=== PATIENT | female | born 1985 | race Caucasian/White ===

== ENCOUNTER 2017-06-18 07:21 | Emergency (ER) | payer OTHER ==
[~2017-06-18] VITALS: Ht 182.9 cm; Wt 105.0 kg
[~2017-06-18 07:21] MED LIST: MACR100C PO; METR-1 PO; PYRI200T4 PO
[2017-06-18 07:28] VITALS: BP 145/78; PULSE 91; RESP 16; TEMP 97.2; O2SAT 97
[2017-06-18 08:01] VITALS: BP 113/77; PULSE 65; RESP 20; O2SAT 99
[2017-06-18] MEDS ORDERED: ATROPINE/SCOPOLAM/HYOSCYAM/PB ELIXIR 10 ML CUP PO ONE (08:15)
[2017-06-18] MEDS ORDERED: ALUMINUM/MAGNESIUM/SIMETH 30 ML CUP PO ONE (08:15)
[2017-06-18] MEDS ORDERED: PANTOPRAZOLE SOD 40 MG DELAYED RELEASE TAB PO ONE (08:15)
[2017-06-18] MEDS ORDERED: ONDANSETRON HCL 4 MG/2 ML VIAL IV PUSH ONE (08:15)
[2017-06-18 08:30] LABS: AUTOMATED NEUTROPHIL # 5.1 TH/MM3 (1.8-7.7); BASOPHIL % 0.6 % (0.0-2.0); EOSINOPHIL # 0.2 TH/MM3 (0-0.4); EOSINOPHIL % 2.7 % (0.0-4.0); HEMATOCRIT 44.5 % (35.0-46.0); HEMOGLOBIN 15.2 GM/DL (11.6-15.3); LYMPH % 24.3 % (9.0-44.0); MEAN CELL VOLUME 92.3 FL (80.0-100.0); MEAN CORPUSCULAR HEMOGLOBIN 31.5 PG (27.0-34.0); MEAN CORPUSCULAR HGB CONC 34.1 % (32.0-36.0); MEAN PLATELET VOLUME 9.9 FL (7.0-11.0); MONO % 8.8 % (0.0-8.0); MONOCYTE # 0.7 TH/MM3 (0-0.9); NEUT % 63.6 % (16.0-70.0); PLATELET COUNT 248 TH/MM3 (150-450); RED BLOOD COUNT 4.81 MIL/MM3 (4.00-5.30); RED CELL DISTRIBUTION WIDTH 13.5 % (11.6-17.2); WHITE BLOOD COUNT 8.1 TH/MM3 (4.0-11.0)
--- NOTE | 2017-06-18 08:35 | PD ---
HPI Chief Complaint: GI Complaint Time Seen by Provider: 08:00 Travel History International Travel<30 days: No Contact w/Intl Traveler<30days: No Traveled to known affect area: No History of Present Illness HPI 32-year-old female complains of abdominal pain, nausea vomiting and hematemesis. Patient states that she started having constant burning pain sharp pain epigastric area with radiation to the chest. Patient states that the pain radiates to the back this morning. Patient states that she vomited this morning. Patient is noted small amount of blood in the vomitus. Patient noticed black tarry stool recently. Patient states that she has intermittent migraine headache for the past week and has been taking aspirin for that. Patient on a vegan diet. Patient denies any chest pain or shortness of breath. Patient denies any dysuria frequency. Patient denies any vaginal discharge or bleeding. Patient denies any history of GI issue in the past. Patient denies alcohol abuse. PFSH Past Medical History Medical History: Denies Significant Hx Blood Disorders: No Diminished Hearing: No Tetanus Vaccination: < 5 Years Influenza Vaccination: No ?: Not LMP: 06/25 Tubal Ligation: Yes Social History Alcohol Use: Yes (OCC) Tobacco Use: No Substance Use: No Allergies-Medications (Allergen,Severity, Reaction): Coded Allergies: erythromycin base (Unverified Allergy, Severe, RASH , 06/18/17) EES CAUSES RASH Reported Meds & Prescriptions Reported Meds & Active Scripts Active No Active Prescriptions or Reported Medications Review of Systems General / Constitutional: No: Fever Eyes: No: Visual changes HENT: No: Headaches Cardiovascular: No: Chest Pain or Discomfort Respiratory: No: Shortness of Breath Gastrointestinal: Positive: Vomiting, Abdominal Pain, Hematemesis, Hematochezia Genitourinary: No: Dysuria Musculoskeletal: No: Pain Skin: No Rash Neurologic: No: Weakness Psychiatric: No: Depression Endocrine: No: Polydipsia Hematologic/Lymphatic: No: Easy Bruising Physical Exam Narrative GENERAL: Well-nourished, well-developed patient. SKIN: Focused skin assessment warm/dry. HEAD: Normocephalic. EYES: No scleral icterus. No injection or drainage. NECK: Supple, trachea midline. No JVD or lymphadenopathy. CARDIOVASCULAR: Regular rate and rhythm without murmurs, gallops, or rubs. RESPIRATORY: Breath sounds equal bilaterally. No accessory muscle use. GASTROINTESTINAL: Abdomen soft, nondistended. Patient has mild to moderate tenderness on palpation epigastric area. No rebound tenderness. No mass. MUSCULOSKELETAL: No cyanosis, or edema. BACK: Nontender without obvious deformity. No CVA tenderness. Neurologic exam normal. Data Data Last Documented VS Vital Signs Date Time Temp Pulse Resp B/P (MAP) Pulse Ox O2 Delivery O2 Flow Rate FiO2 06/18/17 08:01 65 20 113/77 (89) 99 Room Air 06/18/17 07:28 97.2 Orders Orders Complete Blood Count With Diff (06/18/17 08:05) Comprehensive Metabolic Panel (06/18/17 08:05) Lipase (06/18/17 08:05) Urinalysis - C+S If Indicated (06/18/17 08:05) Iv Access Insert/Monitor (06/18/17 08:05) Ecg Monitoring (06/18/17 08:05) Oximetry (06/18/17 08:05) Ed Urine Pregnancytest Poc (06/18/17 08:05) Pantoprazole (Protonix) (06/18/17 08:15) Al-Mag Hy-Si 40-40-4 Mg/Ml Liq (Mag-Al P (06/18/17 08:15) Odthr-Utsvpt-Orcvjn-Pb Liq ( Liq (06/18/17 08:15) Ondansetron Inj (Zofran Inj) (06/18/17 08:15) Labs Laboratory Tests Test 06/18/17 08:05 White Blood Count 8.1 TH/MM3 Red Blood Count 4.81 MIL/MM3 Hemoglobin 15.2 GM/DL Hematocrit 44.5 % Mean Corpuscular Volume 92.3 FL Mean Corpuscular Hemoglobin 31.5 PG Mean Corpuscular Hemoglobin Concent 34.1 % Red Cell Distribution Width 13.5 % Platelet Count 248 TH/MM3 Mean Platelet Volume 9.9 FL Neutrophils (%) (Auto) 63.6 % Lymphocytes (%) (Auto) 24.3 % Monocytes (%) (Auto) 8.8 % Eosinophils (%) (Auto) 2.7 % Basophils (%) (Auto) 0.6 % Neutrophils # (Auto) 5.1 TH/MM3 Lymphocytes # (Auto) 2.0 TH/MM3 Monocytes # (Auto) 0.7 TH/MM3 Eosinophils # (Auto) 0.2 TH/MM3 Basophils # (Auto) 0.0 TH/MM3 CBC Comment DIFF FINAL Differential Comment Blood Urea Nitrogen 9 MG/DL Creatinine 0.83 MG/DL Random Glucose 79 MG/DL Total Protein 7.5 GM/DL Albumin 3.8 GM/DL Calcium Level 8.7 MG/DL Alkaline Phosphatase 85 U/L Aspartate Amino Transf (AST/SGOT) 18 U/L Alanine Aminotransferase (ALT/SGPT) 20 U/L Total Bilirubin 0.6 MG/DL Sodium Level 142 MEQ/L Potassium Level 4.1 MEQ/L Chloride Level 108 MEQ/L Carbon Dioxide Level 23.8 MEQ/L Anion Gap 10 MEQ/L Estimat Glomerular Filtration Rate 80 ML/MIN Lipase 81 U/L MDM Medical Decision Making Medical Screen Exam Complete: Yes Emergency Medical Condition: Yes Interpretation(s) 11:56 AM. CBC within normal limits. CMP within normal limits. Differential Diagnosis Differential diagnosis including gastritis, PUD, pancreatitis, cholecystitis, colitis, UTI, pyelonephritis, nephrolithiasis. Narrative Course 32-year-old female with epigastric abdominal pain, vomiting small hematemesis this morning. Patient has been taking aspirin for migraine headache. Protonix 40 mg p.o. given. Maalox 30 cc p.o. 10 cc p.o. given. Diagnosis Primary Impression: Gastritis Qualified Codes: K29.00 - Acute gastritis without bleeding Patient Instructions: General Instructions Additional Instructions: Take medications as directed. Avoid NSAIDs. Follow-up local physician. Return if worse. Med/Other Pt SpecificInfo: Prescription(s) given Scripts Rizatriptan (Maxalt) 10 Mg Tab 1 TAB PO DAILY for Headaches, #10 Prov: Odin Butcher MD 06/18/17 Dicyclomine (Bentyl) 10 Mg Cap 10 MG PO TID Y for Bowel Management, #21 CAP 0 Refills Prov: Odin Butcher MD 06/18/17 Sucralfate (Carafate) 1 Gram Tab 1 GM PO QID for Ulcer Prevention, #120 TAB 0 Refills On empty stomach Prov: Odin Butcher MD 06/18/17 Pantoprazole (Protonix) 40 Mg Tab 40 MG PO DAILY for Reflux, #30 TAB 0 Refills Prov: Odin Butcher MD 06/18/17 Disposition: 01 DISCHARGE HOME Condition: Stable Odin Butcher MD Jun 18, 2017 08:35
[2017-06-18 08:48] LABS: ALBUMIN 3.8 GM/DL (3.4-5.0); ALT (GPT) 20 U/L (10-53); AST (GOT) 18 U/L (15-37); BICARBONATE 23.8 MEQ/L (21.0-32.0); BLOOD UREA NITROGEN 9 MG/DL (7-18); CALCIUM 8.7 MG/DL (8.5-10.1); CHLORIDE 108 MEQ/L (98-107); CREATININE 0.83 MG/DL (0.50-1.00); GLOMERULAR FILTRATION RATE 80 ML/MIN (>89); GLUCOSE,RANDOM 79 MG/DL (74-106); SODIUM (NA) 142 MEQ/L (136-145)
[2017-06-18 08:50] LABS: ALKALINE PHOSPHATASE 85 U/L (45-117); TOTAL BILIRUBIN ADULT 0.6 MG/DL (0.2-1.0); TOTAL PROTEIN 7.5 GM/DL (6.4-8.2)
[2017-06-18] MEDS ORDERED: DICY10 PO (12:12)
[2017-06-18] MEDS ORDERED: PROT40TA PO (12:12)
[2017-06-18] MEDS ORDERED: CARA1TAB6 PO (12:12)
[2017-06-18] MEDS ORDERED: MAXA10TA2 PO (12:12)
[2017-06-18 12:17] VITALS: BP 129/80; PULSE 80; RESP 18; O2SAT 100
== END 2017-06-18 12:43 | disposition home or self-care (01) ==
LOC: NEPE 07:21
DX: K29.00 Acute gastritis without bleeding (principal); G43.909 Migraine, unspecified, not intractable, without status migrainosus
CPT/HCPCS: 80053; 83690; 84703; 85025; 96374; 99284; J2405